=== PATIENT | male | born 1940 | race Caucasian/White ===

== ENCOUNTER → 2024-12-25 11:11 | Outpatient (REF) | payer MEDICARE, BC, SELFPAY ==
[2024-12-25 12:24] LABS: Urine Character Slightly Cloudy (Clear)
[2024-12-25 12:55] LABS: Urine Squamous Cell 0-2 /LPF (Few); Urine White Cell 40-50 /HPF (0-5)
== END ==
LOC: REG 11:11
PROVIDERS: ATTENDING PHYSICIAN Pediatrics
DX: N39.0 Urinary tract infection, site not specified (principal)
CPT/HCPCS: 81003; 81015; 87086; 87147; 87186

== ENCOUNTER → 2025-04-02 08:33 | Outpatient (REF) | payer MEDICARE, BC, SELFPAY ==
[2025-04-02 10:24] LABS: Urine Character Clear (Clear)
[2025-04-02 10:33] LABS: Hematocrit 41.7 % (39.0-52.0); Hemoglobin 14.3 g/dL (13.0-18.0); Mean Corp Hgb Conc. 34.3 g/dL (33.0-37.0); Mean Corpuscular Volume 95.0 fL (80.0-94.0); Nucleated Red Blood Cells % 0 % (-); Platelet Count 106 10^3/uL (130-400); Red Cell Dist. Width 12.1 % (11.5-14.5)
[2025-04-02 11:00] LABS: Urine White Cell >100 /HPF (0-5)
[2025-04-02 11:09] LABS: ALT (SGPT) 34 U/L (0-50); AST (SGOT) 33 U/L (17-59); Albumin 4.2 g/dl (3.5-5.0); Alkaline Phosphatase 54 U/L (38-126); Blood Urea Nitrogen 14 mg/dl (9-20); Calcium 8.7 mg/dl (8.4-10.2); Carbon Dioxide 32 mmol/L (22-30); Chloride 105 mmol/L (98-107); Glucose 163 mg/dl (70-99); HDL Cholesterol 56 mg/dl; LDL Cholesterol, Calculated 47 mg/dl; Potassium 3.8 mmol/L (3.5-5.1); Sodium 140 mmol/L (135-145); Total Protein 6.1 g/dl (6.3-8.2); Very Low Density Lipoprotein 19 mg/dl (0-30); eGFR > 60.00
[2025-04-02 12:02] LABS: Folate 8.1 ng/ml (2.76-20); Vitamin B12 608 pg/ml (239-931)
[2025-04-02 14:01] LABS: Lyme Antibody Screen, EIA Negative (Negative)
== END ==
LOC: REG 08:33
PROVIDERS: ATTENDING PHYSICIAN Nurse Practitioner Family
DX: I25.10 Atherosclerotic heart disease of native coronary artery without angina pectoris (principal); I25.2 Old myocardial infarction; Z95.5 Presence of coronary angioplasty implant and graft; E78.2 Mixed hyperlipidemia; R68.89 Other general symptoms and signs; M17.12 Unilateral primary osteoarthritis, left knee; Z99.89 Dependence on other enabling machines and devices; Z01.89 Encounter for other specified special examinations; K63.5 Polyp of colon
CPT/HCPCS: 36415; 80053; 80061; 81003; 81015; 82607; 82746; 84443; 85025; 86618; 87086; 87147; 87186

== ENCOUNTER → 2025-04-10 08:50 | Outpatient (REF) | payer MEDICARE, BC, SELFPAY ==
[2025-04-10 10:31] LABS: Glycohemoglobin (HgbA1c) 7.1 % (4.0-5.9)
== END ==
LOC: REG 08:50
PROVIDERS: ATTENDING PHYSICIAN Nurse Practitioner Family
DX: R73.01 Impaired fasting glucose (principal)
CPT/HCPCS: 36415; 83036